=== PATIENT | female | born 1965 | race Caucasian/White ===

== ENCOUNTER 2020-02-08 10:12 | Inpatient (IN) ==
--- NOTE | 2020-02-08 10:54 | Emergency Department Note ---
ED Provider Note NAME: ROXANNE AYON AGE: 54 SEX: F ARRIVES VIA: Walk-In INFORMANT: Patient ED PROVIDER(S): Eileen Lee DO CHIEF COMPLAINT: Fever; nasal congestion; sinus pressure IMPRESSION: Bilateral multifocal pneumonia PLAN: Disposition: Admitted to [facility] group Condition: Guarded MEDICAL DECISION MAKING: This is a 54-year-old female patient who presents to the emergency department with fever, postnasal drip and sinus pressure over the past 4 days. The patient was concerned that she was developing another sinus infection as she has a longstanding history of sinus disease. However, the patient was also concerned because of exposure to her son and who both had traveled to [facility] and [place]. In her septic work-up, the patient was noted to have bilateral multifocal pneumonias that were concerning given her fever and possible exposure. I discussed the case with the [facility] and they have recommended COVID 19 testing. I also performed influenza testing whi ch was negative and bio fire testing which was positive for singh virus HKU1. I discussed the case with the [facility] service and they will evaluate for further management. The patient's vital signs were stable throughout her stay here in the emergency department Triage Nursing notes reviewed and agree them. Vital Signs: reviewed and were stable Differential diagnosis: Sepsis, sinusitis, sinus abscess, influenza, bronchitis, pneumonia, coronavirus, ER treatment provided: Tylenol, saline Diagnostics interpreted by me: ECG: Normal sinus rhythm at a rate of 100. No ischemia or ectopy noted. There is no ST segment elevation. Cardiac Monitoring: Normal sinus rhythm at a rate of 95. Laboratory studies: See below Imaging studies: As interpreted by radiology XR chest 1V portable HISTORY: 54 years-old Female SEPSIS acute sepsis COMPARISON: None TECHNIQUE: Portable AP view of the chest FINDINGS: Cardiac silhouette is normal. Mild bilateral hilar prominence may reflect adenopathy. No pneumothorax or large pleural effusion. Minimal left lung base opacities. Alveolar opacities of the right lung base and right midlung. No overt pulmonary edema. Degenerative changes of the shoulders and spine. IMPRESSION: Right greater than left bilateral opacities are suggestive of multifocal pneumonia. Follow-up imaging to document resolution is recommended. CT sinus wo con HISTORY: 54 years-old Female eval for frontal sinus fluid collection acute headache with concern for acute sinusitis COMPARISON: The sinus 04/09/2019 TECHNIQUE: Multiple axial CT images of the paranasal sinuses were obtained without the use of IV contrast. A dose lowering technique was used consistent with the principals of ALARA. FINDINGS: The imaged intracranial structures demonstrate no appreciable acute abnormality. Soft tissues and orbits are within normal limits. No acute calvarial fracture. Mastoid air cells and middle ear cavities are clear. No acute facial bone fracture identified. 3 mm sclerotic focus of the left sphenoid redemonstrated on image 138 series 3 suggestive of a probable bone island. Interval postoperative changes of partial ethmoidectomy. Mild to moderate mucosal thickening of the inferior maxillary sinuses. The right sphenoethmoidal recess is patent. Mild narrowing of the left sphenoethmoidal recess. Minimal mucosal thickening of the sphenoid sinuses with mild mucosal thickening of the inferior left maxillary sinus. The right maxillary sinus is clear. Patent sphenoethmoidal recesses and right maxillary ostiomeatal unit. There is mild mucosal thickening with resultant narrowing of the left maxillary ostiomeatal unit. Mild asymmetric thickening of the left inferior nasal turbinate. No large Farrah cell or bernie bullosa. Samantha alma is normal. IMPRESSION: 1. Interval postoperative changes of partial ethmoidectomy. 2. Paranasal sinus disease as above with mild to moderate mucosal thickening of the inferior frontal sinuses, left greater than right which results in mild narrowing of the left frontoethmoidal recess. 3. No appreciable air-fluid levels to suggest acute sinusitis. CT chest wo con CT DOSE: 220.01 mGy.cm CLINICAL HISTORY: 54 years-old Female with eval multifocal pneumonia. Multifocal pneumonia. Acute sepsis TECHNIQUE: Multiaxial CT images of the chest were performed without contrast. A dose lowering technique was utilized adhering to the principles of ALARA. COMPARISON: Chest radiograph since of same day FINDINGS: Unremarkable thyroid. Prominent paratracheal mildly enlarged right hilar and subcarinal lymph nodes measure up to 1.2 cm. Heart is normal in size. Trace pericardial effusion. Minimal coronary artery calcifications. No thoracic aortic aneurysm. Trace bilateral pleural effusions. No pneumothorax. Dense alveolar opa cities are present within the anterior segment right upper lobe and also a multi segmental distribution of the basal right lower lobe with air bronchograms. Linear consolidative with patchy groundglass opacities of the left lower lobe. Central airways appear patent. Respiratory motion artifact limits evaluation of the lung parenchyma. No acute process of the imaged upper abdomen. Indeterminate 7 mm hypodensity of the left hepatic lobe. There is a mildly hyperdense structure within the right paracentral distribution of the central canal at T5-T6, image 108 series 4 measuring 6 x 4 x 9 mm. This results in mild to moderate narrowing of the right lateral recess. Bones appear intact. IMPRESSION: 1. Dense alveolar opacities of the anterior segment right upper lobe and basal segments of the right lower lobe with air bronchograms is compatible with multifocal pneumonia. Follow-up imaging to document resolution is recommended. 2. Mild opacities of the basal left lower lobe favor atelectasis, pneumonitis however could appear similarly. 3. Trace pleural effusions. 4. Mild reactive mediastinal and hilar adenopathy. 5. 6 x 4 x 9 mm mildly hyperdense structure within the paracentral distribution of the central canal at T5-T6 results in mild to moderate narrowing of the right lateral recess. Partially calcified disc fragment versus meningioma are differential considerations. If there is further clinical concern, a follow-up nonemergent MRI of the thoracic spine may be considered. HPI: 54/F arrives for evaluation of fever, sinus pressure and postnasal drip. Patient states that she has a longstanding history of sinus infections and developed a fever with sinus pressure on . She thought that she was developing another sinus infection. She then noted she was having significant postnasal drip and gagging up the lot of thick sinus drainage. She then developed a high fever and diffuse myalgias. Her throat became sore from gagging up so much postnasal drip. Became more concerned today because she stated that she just felt more body aches and weaker. Her brought her here for evaluation. Of note, the patient's had traveled to [place] January 16 through and returned home on January 24. Also, the patient's son had traveled to [place] on January 22 and returned home on January 29. ROS: See above HPI for pertinent positives & negatives. A total of 10 systems reviewed and were otherwise negative. PAST MEDICAL HISTORY:GERD, sinusitis, asthma PAST SURGICAL HISTORY:Endoscopic sinus surgery with Dr. Sidhu in June FAMILY HISTORY:See Below SOCIAL HISTORY:See Below HOME MEDICATIONS:See Below ALLERGIES:See Below VITALS:Stable PHYSICAL EXAMINATION: HEENT: Head - normocephalic and atraumatic Pupils are equal, round, and reactive to light. Extraocular eye muscles are intact, and sclera are anicteric. Nose - moist nasal mucosa without discharge. Mouth - moist buccal mucosa. Oropharynx is nonerythematous and there is no tonsillar exudate or didi ma noted. Neck: Supple; no cervical lymphadenopathy Heart: Regular rate and rhythm. There is a normal S1 and S2 with no murmurs, clicks, or gallops appreciated. Lungs: Clear to auscultation bilaterally with no wheezes, rales, or rhonchi. Abdomen: Soft, completely nontender, nondistended, with good bowel sounds. There are no palpable pulsatile masses or hepatosplenomegaly. There is no guarding, rigidity, or rebound noted. Extremities: No evidence of cyanosis, clubbing, or edema. There are easily palpable peripheral pulses. Skin: warm and dry with good turgor and no rashes. ED COURSE: Triage nurse was concerned for the possibility of coronavirus. The patient was placed in airborne precautions. She was placed in negative pressure. I donned appropriate PPE. The patient was evaluated in room C9. A complete history and physical was performed. A septic protocol was performed. An IV lock was initiated and labs were drawn as above. An order was placed for continuous cardiac monitoring. The patient went for CT scan of her sinuses. A portable chest x-ray was performed and revealed bilateral multifocal pneumonias which was quite concernin g given her lack of significant respiratory complaint and in light of the current Covid 19 situation. I contacted the Department of Health Covid 19 hotline and discussed the case with Dr. Duran and she recommended bio Heyy testing and Covid 19 testing to be sent immediately to the Department of Health. This testing was complete. The patient went back for CT scan of the chest which confirmed the multifocal bilateral pneumonias. She remained hemodynamically stable. I kept her abreast of the situation. I kept the patient's abreast of the situation by telephone. I discussed the case with the [facility]ist and we talked about treating the patient for bacterial superinfection. I spoke with the patient about the possibility of other bacterial infection secondary to the possibility of aspiration. On bio fire panel, the patient was positive for a another coronavirus. Patient had some leukocytosis but her lactate was normal. Throughout her stay here in the emergency department, she remained hemodynamically stable and did not require oxygen support. 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 Beliefs That Will Affect Care: None Current Living Situation: Spouse Other Information That Helps Us Care for You: No Feels Safe at Home: Yes Safety Concerns: Feels Safe At This Time Smoking Status: Never smoker Second Hand Exposure: Yes ; Hx Alcohol Use: Yes Alcohol type: wine Hx Substance Use: No Results & Data Vital Signs Vital Signs - 24 hr 02/08/20 10:24 02/08/20 10:25 02/08/20 10:28 Temperature 37.6 C H Temperature Source Oral Pulse Rate 96 H 93 H Pulse Rate from SpO2 Sensor 93 H Respiratory Rate 20 22 Blood Pressure 132/84 120/83 Blood Pressure Mean 100 98 Pulse Oximetry 99 99 99 Oxygen Delivery Method Room Air Room Air Sepsis Recent Fever Within 48 Hours Yes Sepsis New/Unexplained Change in Mental Status No Sepsis Action Taken by Nursing No Action Required 02/08/20 10:30 02/08/20 11:00 02/08/20 11:30 Temperature Temperature Source Pulse Rate 92 H 98 H 95 H Pulse Rate from SpO2 Sensor 94 H 98 H 95 H Respiratory Rate 24 19 20 Blood Pressure 129/79 119/78 113/76 Blood Pressure Mean 90 100 92 Pulse Oximetry 99 96 98 Oxygen Delivery Method Sepsis Recent Fever Within 48 Hours Sepsis New/Unexplained Change in Mental Status Sepsis Action Taken by Nursing 02/08/20 12:13 02/08/20 12:37 02/08/20 13:00 Temperature Temperature Source Pulse Rate 92 H 94 H 91 H Pulse Rate from SpO2 Sensor 91 H 93 H 91 H Respiratory Rate 23 23 24 Blood Pressure 123/85 126/75 109/67 Blood Pressure Mean 100 83 75 Pulse Oximetry 98 96 95 Oxygen Delivery Method Sepsis Recent Fever Within 48 Hours Sepsis New/Unexplained Change in Mental Status Sepsis Action Taken by Nursing Laboratory Data Result diagrams: 02/08/20 11:31 02/08/20 11:31 Lab Results 02/08/20 02/08/20 02/08/20 Range/Units 10:32 11:31 11:31 WBC 17.64 H (4.8-10.8) K/uL RBC 4.14 L (4.2-5.4) M/uL Hgb 13.4 (12.0-16.0) g/dL Hct 38.8 (37-47) % MCV 93.7 (80-100) fL MCH 32.4 (25-34) pg MCHC 34.5 (32-36) g/dL RDW Std Deviation 43.9 (36.4-46.3) fL RDW Coeff of Camelia 12.7 (11.5-14.5) % Plt Count 222 (130-400) K/uL MPV 10.4 (7.4-10.4) fL Immature Gran % (Auto) 0.3 % Neut % (Auto) 83.7 % Lymph % (Auto) 6.6 % Chaffee % (Auto) 9.1 % Eos % (Auto) 0.2 % Baso % (Auto) 0.1 % Immature Gran # (Auto) 0.05 H (0.00-0.02) K/uL Neut # (Auto) 14.79 H (1.4-6.5) K/uL Lymph # (Auto) 1.16 L (1.2-3.4) K/uL [place]fee # (Auto) 1.60 H (0.11-0.59) K/uL Eos # (Auto) 0.03 (0-0.5) K/uL Baso # (Auto) 0.01 (0-0.2) K/uL PT 11.0 (9.0-12.0) Seconds INR 1.0 (0.9-1.1) APTT 31.9 H (21.0-31.0) Seconds PTT Ratio 1.1 Sodium (136-145) mmol/L Potassium (3.5-5.1) mmol/L Chloride (98-107) mmol/L Carbon Dioxide (21-32) mmol/L Anion Gap (3-11) BUN (7-18) mg/dl Creatinine (0.6-1.2) mg/dl Est Cr Clr Drug Dosing ml/min Est GFR ( Amer) Est GFR (Non-Af Amer) BUN/Creatinine Ratio (10-20) Glucose (70-99) mg/dl Lactate (0.4-2.0) mmol/L Calcium (8.5-10.1) mg/dl Total Bilirubin (0.2-1) mg/dl AST (15-37) U/L ALT (12-78) U/L Alkaline Phosphatase (45-117) U/L Total Protein (6.4-8.2) gm/dl Albumin (3.4-5.0) gm/dl Globulin (2.5-4.0) gm/dl Albumin/Globulin Ratio (0.9-2) Procalcitonin (0-0.5) ng/ml Adenovirus (PCR) (NotDetected) B. pertussis DNA (PCR) (NotDetected) B.parapertussis DNA PCR (NotDetected) C. pneumoniae DNA (PCR) (NotDetected) Coronavirus OC43 (PCR) (NotDetected) Coronavirus HKU1 (PCR) (NotDetected) Coronavirus 229E (PCR) (NotDetected) Coronavirus NL63 (PCR) (NotDetected) Human Metapneumovir PCR (NotDetected) Influenza Type A (PCR) Neg for Influ A (Neg) Influenza Type B (PCR) Neg for Influ B (Neg) M. pneumoniae (PCR) (NotDetected) Parainfluenza 1 (PCR) (NotDetected) Parainfluenza 2 (PCR) (NotDetected) Parainfluenza 3 (PCR) (NotDetected) Parainfluenza 4 (PCR) (NotDetected) RSV (PCR) (NotDetected) Entero/Rhino (PCR) (NotDetected) 02/08/20 02/08/20 02/08/20 Range/Units 11:31 11:31 12:10 WBC (4.8-10.8) K/uL RBC (4.2-5.4) M/uL Hgb (12.0-16.0) g/dL Hct (37-47) % MCV (80-100) fL MCH (25-34) pg MCHC (32-36) g/dL RDW Std Deviation (36.4-46.3) fL RDW Coeff of Camelia (11.5-14.5) % Plt Count (130-400) K/uL MPV (7.4-10.4) fL Immature Gran % (Auto) % Neut % (Auto) % Lymph % (Auto) % Chaffee % (Auto) % Eos % (Auto) % Baso % (Auto) % Immature Gran # (Auto) (0.00-0.02) K/uL Neut # (Auto) (1.4-6.5) K/uL Lymph # (Auto) (1.2-3.4) K/uL [place]affee # (Auto) (0.11-0.59) K/uL Eos # (Auto) (0-0.5) K/uL Baso # (Auto) (0-0.2) K/uL PT (9.0-12.0) Seconds INR (0.9-1.1) APTT (21.0-31.0) Seconds PTT Ratio Sodium 135 L (136-145) mmol/L Potassium 3.3 L (3.5-5.1) mmol/L Chloride 104 (98-107) mmol/L Carbon Dioxide 27 (21-32) mmol/L Anion Gap 4.0 (3-11) BUN 6 L (7-18) mg/dl Creatinine 0.80 (0.6-1.2) mg/dl Est Cr Clr Drug Dosing 70.2 ml/min Est GFR ( Amer) 97.6 Est GFR (Non-Af Amer) 84.2 BUN/Creatinine Ratio 6.9 L (10-20) Glucose 117 H (70-99) mg/dl Lactate 0.9 (0.4-2.0) mmol/L Calcium 8.6 (8.5-10.1) mg/dl Total Bilirubin 1.2 H (0.2-1) mg/dl AST 11 L (15-37) U/L ALT 17 (12-78) U/L Alkaline Phosphatase 93 (45-117) U/L Total Protein 6.7 (6.4-8.2) gm/dl Albumin 2.7 L (3.4-5.0) gm/dl Globulin 4.0 (2.5-4.0) gm/dl Albumin/Globulin Ratio 0.7 L (0.9-2) Procalcitonin 1.26 H (0-0.5) ng/ml Adenovirus (PCR) (NotDetected) B. pertussis DNA (PCR) (NotDetected) B.parapertussis DNA PCR (NotDetected) C. pneumoniae DNA (PCR) (NotDetected) Coronavirus OC43 (PCR) (NotDetected) Coronavirus HKU1 (PCR) (NotDetected) Coronavirus 229E (PCR) (NotDetected) Coronavirus NL63 (PCR) (NotDetected) Human Metapneumovir PCR (NotDetected) Influenza Type A (PCR) (Neg) Influenza Type B (PCR) (Neg) M. pneumoniae (PCR) (NotDetected) Parainfluenza 1 (PCR) (NotDetected) Parainfluenza 2 (PCR) (NotDetected) Parainfluenza 3 (PCR) (NotDetected) Parainfluenza 4 (PCR) (NotDetected) RSV (PCR) (NotDetected) Entero/Rhino (PCR) (NotDetected) 02/08/20 Range/Units 12:24 WBC (4.8-10.8) K/uL RBC (4.2-5.4) M/uL Hgb (12.0-16.0) g/dL Hct (37-47) % MCV (80-100) fL MCH (25-34) pg MCHC (32-36) g/dL RDW Std Deviation (36.4-46.3) fL RDW Coeff of Camelia (11.5-14.5) % Plt Count (130-400) K/uL MPV (7.4-10.4) fL Immature Gran % (Auto) % Neut % (Auto) % Lymph % (Auto) % [place]affee % (Auto) % Eos % (Auto) % Baso % (Auto) % Immature Gran # (Auto) (0.00-0.02) K/uL Neut # (Auto) (1.4-6.5) K/uL Lymph # (Auto) (1.2-3.4) K/uL [place]fee # (Auto) (0.11-0.59) K/uL Eos # (Auto) (0-0.5) K/uL Baso # (Auto) (0-0.2) K/uL PT (9.0-12.0) Seconds INR (0.9-1.1) APTT (21.0-31.0) Seconds PTT Ratio Sodium (136-145) mmol/L Potassium (3.5-5.1) mmol/L Chloride (98-107) mmol/L Carbon Dioxide (21-32) mmol/L Anion Gap (3-11) BUN (7-18) mg/dl Creatinine (0.6-1.2) mg/dl Est Cr Clr Drug Dosing ml/min Est GFR ( Amer) Est GFR (Non-Af Amer) BUN/Creatinine Ratio (10-20) Glucose (70-99) mg/dl Lactate (0.4-2.0) mmol/L Calcium (8.5-10.1) mg/dl Total Bilirubin (0.2-1) mg/dl AST (15-37) U/L ALT (12-78) U/L Alkaline Phosphatase (45-117) U/L Total Protein (6.4-8.2) gm/dl Albumin (3.4-5.0) gm/dl Globulin (2.5-4.0) gm/dl Albumin/Globulin Ratio (0.9-2) Procalcitonin (0-0.5) ng/ml Adenovirus (PCR) Not Detected (NotDetected) B. pertussis DNA (PCR) Not Detected (NotDetected) B.parapertussis DNA PCR Not Detected (NotDetected) C. pneumoniae DNA (PCR) Not Detected (NotDetected) Coronavirus OC43 (PCR) Not Detected (NotDetected) Coronavirus HKU1 (PCR) DETECTED A* (NotDetected) Coronavirus 229E (PCR) Not Detected (NotDetected) Coronavirus NL63 (PCR) Not Detected (NotDetected) Human Metapneumovir PCR Not Detected (NotDetected) Influenza Type A (PCR) Not Detected (Neg) Influenza Type B (PCR) Not Detected (Neg) M. pneumoniae (PCR) Not Detected (NotDetected) Parainfluenza 1 (PCR) Not Detected (NotDetected) Parainfluenza 2 (PCR) Not Detected (NotDetected) Parainfluenza 3 (PCR) Not Detected (NotDetected) Parainfluenza 4 (PCR) Not Detected (NotDetected) RSV (PCR) Not Detected (NotDetected) Entero/Rhino (PCR) Not Detected (NotDetected) Administered Medications Albuterol (Ventolin Hfa) 2 puffs INH Q4H PRN PRN Reason: chest tightness, wheezing, cough Stop: 03/09/20 17:14 Last Admin: 02/08/20 17:12 Dose: 2 puffs Documented by: [id number] Guaifenesin (Mucinex) 1,200 mg PO Q12 GISELA Stop: 03/09/20 15:29 Last Admin: 02/08/20 16:06 Dose: 1,200 mg Documented by: [id number] Sodium Chloride (Nss 1000ml) 1,000 mls @ 80 mls/hr IV .[id number] GISELA Stop: 02/09/20 15:49 Last Infusion: 02/08/20 17:13 Dose: 80 mls/hr Documented by: [id number] Infusion: 02/08/20 16:08 Dose: 0 mls/hr Documented by: [id number] Admin: 02/08/20 16:08 Dose: 80 mls/hr Documented by: [id number] Discontinued Medications Acetaminophen (Tylenol) 1,000 mg PO NOW STA Stop: 02/08/20 12:50 Last Admin: 02/08/20 13:40 Dose: 1,000 mg Documented by: [id number] Fluticasone/Vilanterol (Breo Ellipta 200/25 Mcg Inh) 1 puffs INH ONE ONE Stop: 02/08/20 17:08 Last Admin: 02/08/20 17:12 Dose: 1 puffs Documented by: [id number] Sodium Chloride (Nss) 500 mls @ 999 mls/hr IV .Q31M ONE Stop: 02/08/20 11:56 Last Infusion: 02/08/20 12:53 Dose: 0 mls/hr Documented by: [id number] Admin: 02/08/20 12:09 Dose: 999 mls/hr Documented by: [id number] Ceftriaxone Sodium (Rocephin) 2,000 mg in 70 mls @ 140 mls/hr IV NOW STA Stop: 02/08/20 13:37 Last Infusion: 02/08/20 14:51 Dose: 0 mls/hr Documented by: [id number] Admin: 02/08/20 13:40 Dose: 140 mls/hr Documented by: [id number] Sodium Chloride (Nss 1000ml) 2,000 mls @ 999 mls/hr IV .Q2H1M ONE Stop: 02/08/20 15:14 Last Infusion: 02/08/20 16:09 Dose: 0 mls/hr Documented by: [id number] Admin: 02/08/20 13:50 Dose: 999 mls/hr Documented by: [id number] Azithromycin 500 mg/ Dextrose 255 mls @ 125 mls/hr IV ONE ONE Stop: 02/08/20 15:17 Last Infusion: 02/08/20 17:13 Dose: 0 mls/hr Documented by: [id number] Admin: 02/08/20 14:51 Dose: 125 mls/hr Documented by: [id number] Ketorolac Tromethamine (Toradol) 30 mg IV NOW ONE Stop: 02/08/20 11:27 Last Admin: 02/08/20 12:08 Dose: 30 mg Documented by: [id number] Potassium Chloride (Klor-Con M20) 40 meq PO NOW STA Stop: 02/08/20 14:51 Last Admin: 02/08/20 16:06 Dose: 40 meq Documented by: [id number] Discharge Plan Visit Data *Final* Discharge Date/Time: 02/08/20 14:02 Chief Complaint: Fever Stated Complaint: FEVER,COUGH,BODY ACHES,HEADACHE ED Provider: Eileen Lee Discharge Problem: Multifocal pneumonia Patient Disposition: Admitted As Inpatient Discharge Instructions Interventions: ED Discharge Assessment Last Done: 02/08/20 14:02
[2020-02-08 11:16] LABS: Influenza A virus by PCR Neg for Influ A (Neg); Influenza B virus by PCR Neg for Influ B (Neg)
[2020-02-08] MEDS ORDERED: KETOROLAC 30 MG/ML VIAL IV ONE (11:26)
[2020-02-08] MEDS ORDERED: SODIUM CHLORIDE 0.9% 500 ML IV ONE (11:26)
[2020-02-08 11:45] LABS: Basophils # (auto) 0.01 K/uL (0-0.2); Basophils % (auto) 0.1 %; Eosinophils # (auto) 0.03 K/uL (0-0.5); Eosinophils % (auto) 0.2 %; Hematocrit (blood only) 38.8 % (37-47); Hemoglobin 13.4 g/dL (12.0-16.0); Immature Granulocytes # (auto) 0.05 K/uL (0.00-0.02); Immature Granulocytes % (auto) 0.3 %; Lymphocytes # (auto) 1.16 K/uL (1.2-3.4); Lymphocytes % (auto) 6.6 %; Mean Corpuscular Hemoglobin 32.4 pg (25-34); Mean Corpuscular Hgb Conc 34.5 g/dL (32-36); Mean Corpuscular Volume 93.7 fL (80-100); Mean Platelet Volume 10.4 fL (7.4-10.4); Monocytes % (auto) 9.1 %; Neutrophils # (auto) 14.79 K/uL (1.4-6.5); Neutrophils % (auto) 83.7 %; Platelet Count 222 K/uL (130-400); RDW Coefficient of Variation 12.7 % (11.5-14.5); RDW Standard Deviation 43.9 fL (36.4-46.3); Red Blood Count 4.14 M/uL (4.2-5.4); White Blood Count 17.64 K/uL (4.8-10.8)
--- NOTE | 2020-02-08 11:51 | XRay Report ---
XR chest 1V portable HISTORY: 54 years-old Female SEPSIS acute sepsis COMPARISON: None TECHNIQUE: Portable AP view of the chest FINDINGS: Cardiac silhouette is normal. Mild bilateral hilar prominence may reflect adenopathy. No pneumothorax or large pleural effusion. Minimal left lung base opacities. Alveolar opacities of the right lung ba se and right midlung. No overt pulmonary edema. Degenerative changes of the shoulders and spine. IMPRESSION: Right greater than left bilateral opacities are suggestive of multifocal pneumonia. Follo w-up imaging to document resolution is recommended. ACT 112: Negative or not required by law. The above report was generated using voice recognition software. It may contain grammatical, syntax o r spelling errors. Electronically signed by: Nick Carlson M.D. 02/08/2020 11:50 AM
[2020-02-08 11:58] LABS: Partial Thromboplastin Ratio 1.1; Partial Thromboplastin Time 31.9 Seconds (21.0-31.0)
[2020-02-08 12:02] LABS: Albumin Level 2.7 gm/dl (3.4-5.0); BUN Creatinine Ratio 6.9 (10-20); Calcium 8.6 mg/dl (8.5-10.1); Creatinine Clr Calc Pharmacy 70.2 ml/min; Est GFR (African American) 97.6; Est GFR (Non-African American) 84.2; Potassium 3.3 mmol/L (3.5-5.1)
[2020-02-08 12:05] LABS: Albumin Globulin Ratio 0.7 (0.9-2); Bilirubin,Total 1.2 mg/dl (0.2-1); Total Protein 6.7 gm/dl (6.4-8.2)
--- NOTE | 2020-02-08 12:09 | CT Scan Report ---
CT sinus wo con HISTORY: 54 years-old Female eval for frontal sinus fluid collection acute headache with concern for acute sinusitis COMPARISON: The sinus 04/09/2019 TECHNIQUE: Multiple axial CT images of the paranasal sinuses were obtained without the use of IV cont rast. A dose lowering technique was used consistent with the principals of NASH. FINDINGS: The imaged intracranial structures demonstrate no appreciable acute abnormality. Soft tissues and orb its are within normal limits. No acute calvarial fracture. Mastoid air cells and middle ear cavities are clear. No acute facial bone fracture identified. 3 mm sclerotic focus of the left sphenoid redemo nstrated on image 138 series 3 suggestive of a probable bone island. Interval postoperative changes o f partial ethmoidectomy. Mild to moderate mucosal thickening of the inferior maxillary sinuses. The r ight sphenoethmoidal recess is patent. Mild narrowing of the left sphenoethmoidal recess. Minimal muc osal thickening of the sphenoid sinuses with mild mucosal thickening of the inferior left maxillary s inus. The right maxillary sinus is clear. Patent sphenoethmoidal recesses and right maxillary ostiome atal unit. There is mild mucosal thickening with resultant narrowing of the left maxillary ostiomeata l unit. Mild asymmetric thickening of the left inferior nasal turbinate. No large Farrah cell or conc esquivel bullosa. Samantha alma is normal. IMPRESSION: 1. Interval postoperative changes of partial ethmoidectomy. 2. Paranasal sinus disease as above with mild to moderate mucosal thickening of the inferior frontal sinuses, left greater than right which results in mild narrowing of the left frontoethmoidal recess. 3. No appreciable air-fluid levels to suggest acute sinusitis. ACT 112: Negative or not required by law. The above report was generated using voice recognition software. It may contain grammatical, syntax o r spelling errors. Electronically signed by: Nick Carlson M.D. 02/08/2020 12:08 PM
[2020-02-08] MEDS ORDERED: ACETAMINOPHEN 500 MG TAB PO STA (12:49)
--- NOTE | 2020-02-08 12:58 | CT Scan Report ---
CT chest wo con CT DOSE: 220.01 mGy.cm CLINICAL HISTORY: 54 years-old Female with eval multifocal pneumonia. Multifocal pneumonia. Acute se psis TECHNIQUE: Multiaxial CT images of the chest were performed without contrast. A dose lowering techni que was utilized adhering to the principles of ALARA. COMPARISON: Chest radiograph since of same day FINDINGS: Unremarkable thyroid. Prominent paratracheal mildly enlarged right hilar and subcarinal lymph nodes m easure up to 1.2 cm. Heart is normal in size. Trace pericardial effusion. Minimal coronary artery tanja cifications. No thoracic aortic aneurysm. Trace bilateral pleural effusions. No pneumothorax. Dense a lveolar opacities are present within the anterior segment right upper lobe and also a multi segmental distribution of the basal right lower lobe with air bronchograms. Linear consolidative with patchy g roundglass opacities of the left lower lobe. Central airways appear patent. Respiratory motion artifa ct limits evaluation of the lung parenchyma. No acute process of the imaged upper abdomen. Indeterminate 7 mm hypodensity of the left hepatic lobe . There is a mildly hyperdense structure within the right paracentral distribution of the central can al at T5-T6, image 108 series 4 measuring 6 x 4 x 9 mm. This results in mild to moderate narrowing of the right lateral recess. Bones appear intact. IMPRESSION: 1. Dense alveolar opacities of the anterior segment right upper lobe and basal segments of the right lower lobe with air bronchograms is compatible with multifocal pneumonia. Follow-up imaging to docume nt resolution is recommended. 2. Mild opacities of the basal left lower lobe favor atelectasis, pneumonitis however could appear si milarly. 3. Trace pleural effusions. 4. Mild reactive mediastinal and hilar adenopathy. 5. 6 x 4 x 9 mm mildly hyperdense structure within the paracentral distribution of the central canal at T5-T6 results in mild to moderate narrowing of the right lateral recess. Partially calcified disc fragment versus meningioma are differential considerations. If there is further clinical concern, a f ollow-up nonemergent MRI of the thoracic spine may be considered. ACT 112: Negative or not required by law. Electronically signed by: Nick Carlson M.D. 02/08/2020 12:57 PM
[2020-02-08] MEDS ORDERED: cefTRIAXone SODIUM 2,000 MG/70 ML BAG IV STA (13:08)
[2020-02-08] MEDS ORDERED: SODIUM CHLORIDE 0.9% 1000ML 2,000 ML IV ONE (13:14)
[2020-02-08] MEDS ORDERED: AZITHROMYCIN 500 MG in DEXTROSE 5% 250 ML IV ONE (13:15)
[2020-02-08 13:31] LABS: Adenovirus PCR Not Detected (NotDetected); Bordetella parapertussis PCR Not Detected (NotDetected); Bordetella pertussis PCR Not Detected (NotDetected); Chlamydia pneumoniae PCR Not Detected (NotDetected); Coronavirus 229E PCR Not Detected (NotDetected); Coronavirus NL63 PCR Not Detected (NotDetected); Coronavirus OC43PCR Not Detected (NotDetected); Human Metapneumovirus PCR Not Detected (NotDetected); Influenza A PCR Not Detected (NotDetected); Influenza B PCR Not Detected (NotDetected); Mycoplasma pneumoniae PCR Not Detected (NotDetected); Parainfluenza Virus 1 PCR Not Detected (NotDetected); Parainfluenza Virus 2 PCR Not Detected (NotDetected); Parainfluenza Virus 3 PCR Not Detected (NotDetected); Parainfluenza Virus 4 PCR Not Detected (NotDetected); Respiratory Syncytial VirusPCR Not Detected (NotDetected); Rhinovirus/Enterovirus PCR Not Detected (NotDetected)
[2020-02-08 13:33] LABS: Coronavirus HKU1 PCR DETECTED (NotDetected)
--- NOTE | 2020-02-08 13:55 | History & Physical Report ---
Date of Service February 08, 2020 Assessment & Plan (1) Multifocal pneumonia: - Presented with nasal congestion, post nasal drip, fever/chills, myalgias. Has been mildly tachycardic, low grade fever (37.6 C) since presenting to the ER. - CT chest showed opacities of RUL and RLL; also has opacities of basal left lower lobe, possibly atelectasis. - CT sinuses was negative for acute sinusitis. - Influenza by PCR negative; Biofire +Coronavirus HKU1. COVID-19 test is pending. - Blood cultures pending; U/a pending collection. - Procal pending; Ceftriaxone/Azithromycin for coverage of CAP due to appearance of bacterial PNA on CT scan. - Duonebs q6hr prn SOB/wheezing. - IV fluids at 80 cc/hr; regular diet as tolerated. (2) Suspected [facility] coronavirus infection: - Possible exposure to COVID-19 -- her son and traveled over the last month to [place] and [place]. - COVID-19 test was sent to the [facility], should be resulted by Sunday. - Airborne precautions. (3) Coronavirus infection: HKU1 positive, COVID-19 pending - supportive care, airborne precautions (4) Leukocytosis: - WBC 17.64 in setting of PNA with left shift. - Trend CBC daily. (5) Elevated bilirubin: - T. bili 1.2 in setting of acute illness. - Trend LFTs in the AM. (6) Chronic sinusitis: - H/o partial ethmoidectomy in 2019. - Has not had issues with sinus infections since her surgery, previously had 7-9 per year; treatment for PNA as noted above. - CT of sinuses negative with except of mild to moderate mucosal thickening. (7) Moderate persistent asthma: Advair switched for Breo Ellipta as per hospital formulary (8) Hypokalemia: - K level 3.3 - ordered KCl 40 mEq PO. - Monitor levels daily. (9) Allergic rhinitis: Switch loratadine for cetirizine 10mg PO daily (10) DVT prophylaxis: - SCDs; Lovenox daily. Dispo: Med/surg with tele with airborne precautions. History of Present Illness Chief Complaint: respiratory symptoms Primary Care Provider: Micky Bauer Mrs. Pena is a 54 year old female with past medical history of sinus infections s/p recent partial ethmoidectomy in 2019 who presented with respiratory symptoms. Patient developed frequent sinus infections, average of 7- 9 per year, prior to sinus surgery. She has not had any issues following surgery until she developed sinus pressure/pain on . Pt. c/o thick green-yellow mucous congestion with post nasal drip leading to coughing episodes. She does not have chest congestion, shortness of breath, chest pain. Pt. developed generalized myalgias and severe headache this morning. She has had exposure to family members who recently traveled -- her son traveled to [facility] for spring break (01/22-01/29) via [place] airport and her traveled to [place] for work (01/16-01/24) via [place]. Her son and are both completely asymptomatic. ER course: Influenza by PCR was negative. Biofire is pending. CT sinuses showed paranasal sinus disease with mild to moderate mucosal thickening. CT chest showed opacities of RUL and RLL concerning for multifocal pneumonia. Pt. will be tested for COVID-19 following discussion with GIANNA. Allergies Allergy/AdvReac Type Severity Reaction Status Date / Time mold Allergy Severe inflamation Unverified 02/08/20 11:01 of lungs and sinus fexofenadine [From Iveth] Allergy Anxiety Verified 02/08/20 11:01 sulfamethoxazole Allergy Headache Verified 02/08/20 11:01 [From Bactrim] trimethoprim [From Bactrim] Allergy Headache Verified 02/08/20 11:01 Home Medications Home Medications Medication Instructions Recorded Confirmed Type albuterol sulfate 1 puff INHALATION QAM 06/20/19 02/08/20 History fluticasone propion-salmeterol 1 inh INHALATION BID 06/20/19 02/08/20 History [Advair Diskus] ibuprofen [Advil] 200 mg PO Q6H PRN 06/20/19 02/08/20 History loratadine [Claritin] 10 mg PO QPM 06/20/19 02/08/20 History methenamine hippurate 1 g PO BID 06/20/19 02/08/20 History mometasone 2 spray INTRANASAL BID 06/20/19 02/08/20 History montelukast [Singulair] 10 mg PO PM 06/20/19 02/08/20 History Past Med/Surg History Medical History Asthma GERD (gastroesophageal reflux disease) Sinus infection CURRENT 06/20/19 Surgical History History of surgical procedure on eye proper using laser History of tooth extraction Family History Brother Diabetes Social History Preferred Language: [place] Communication Ability: Effective University Internship Required: No Beliefs That Will Affect Care: None Current Living Situation: Spouse Other Information That Helps Us Care for You: No Feels Safe at Home: Yes Safety Concerns: Feels Safe At This Time Smoking Status: Never smoker Second Hand Exposure: Yes ; Hx Alcohol Use: Yes Alcohol type: wine Hx Substance Use: No Review of Systems Review of Systems: All systems reviewed & are unremarkable except as noted in HPI & below Constitutional: + fever, + chills, + body aches, + fatigue, + weakness and + anorexia Ear, Nose, Mouth, Throat: + nasal congestion, + nasal discharge, + post nasal drip, + facial pain and + sinus pain/pressure; no sore throat Respiratory: + cough; no chest congestion, no dyspnea, no dyspnea on exertion and no wheezing Cardiovascular: no chest pain, no palpitations and no edema Gastrointestinal: no abdominal pain, no nausea, no vomiting and no constipation Genitourinary: no difficulty urinating Musculoskeletal: no back pain and no joint pain Integumentary: no non-healing lesions Physical Exam Physical Exam: General: Resting comfortably HEENT: NC/AT; PERRLA with EOMI; [place] conjunctiva, MMM. No erythema of posterior pharynx Neck: Supple and nontender Cardiac: RRR Lungs: Room air; CTA throughout Abdomen: Bowel normoactive X 4; Nontender to palpation Extremities: Warm. No edema present Neuro: No focal weakness Skin: No rash Results & Data Vital Signs (Past 12 Hours) Vital Signs Temp Pulse Resp BP Pulse Ox 02/08/20 13:00 91 H 24 109/67 95 02/08/20 12:37 94 H 23 126/75 96 03/22/20 12:13 92 H 23 123/85 98 02/08/20 11:30 95 H 20 113/76 98 02/08/20 11:00 98 H 19 119/78 96 02/08/20 10:30 92 H 24 129/79 99 02/08/20 10:28 99 02/08/20 10:25 93 H 22 120/83 99 02/08/20 10:24 37.6 C H 96 H 20 132/84 99 Laboratory Results 02/08/20 02/08/20 02/08/20 Range/Units 12:24 12:24 12:10 WBC (4.8-10.8) K/uL RBC (4.2-5.4) M/uL Hgb (12.0-16.0) g/dL Hct (37-47) % MCV (80-100) fL MCH (25-34) pg MCHC (32-36) g/dL RDW Std Deviation (36.4-46.3) fL RDW Coeff of Camelia (11.5-14.5) % Plt Count (130-400) K/uL MPV (7.4-10.4) fL Immature Gran % (Auto) % Neut % (Auto) % Lymph % (Auto) % [place] % (Auto) % Eos % (Auto) % Baso % (Auto) % Immature Gran # (Auto) (0.00-0.02) K/uL Neut # (Auto) (1.4-6.5) K/uL Lymph # (Auto) (1.2-3.4) K/uL [place] # (Auto) (0.11-0.59) K/uL Eos # (Auto) (0-0.5) K/uL Baso # (Auto) (0-0.2) K/uL PT (9.0-12.0) Seconds INR (0.9-1.1) APTT (21.0-31.0) Seconds PTT Ratio Sodium (136-145) mmol/L Potassium (3.5-5.1) mmol/L Chloride (98-107) mmol/L Carbon Dioxide (21-32) mmol/L Anion Gap (3-11) BUN (7-18) mg/dl Creatinine (0.6-1.2) mg/dl Est Cr Clr Drug Dosing ml/min Est GFR ( Amer) Est GFR (Non-Af Amer) BUN/Creatinine Ratio (10-20) Glucose (70-99) mg/dl Lactate (0.4-2.0) mmol/L Calcium (8.5-10.1) mg/dl Total Bilirubin (0.2-1) mg/dl AST (15-37) U/L ALT (12-78) U/L Alkaline Phosphatase (45-117) U/L Total Protein (6.4-8.2) gm/dl Albumin (3.4-5.0) gm/dl Globulin (2.5-4.0) gm/dl Albumin/Globulin Ratio (0.9-2) Procalcitonin Pending Adenovirus (PCR) Not Detected (NotDetected) B. pertussis DNA (PCR) Not Detected (NotDetected) B.parapertussis DNA PCR Not Detected (NotDetected) C. pneumoniae DNA (PCR) Not Detected (NotDetected) Coronavirus OC43 (PCR) Not Detected (NotDetected) Coronavirus HKU1 (PCR) DETECTED A* (NotDetected) Coronavirus 229E (PCR) Not Detected (NotDetected) Nasopharyn COVID-19 PCR Pending Sputum COVID-19 PCR Pending Coronavirus NL63 (PCR) Not Detected (NotDetected) Human Metapneumovir PCR Not Detected (NotDetected) Influenza Type A (PCR) Not Detected (Neg) Influenza Type B (PCR) Not Detected (Neg) M. pneumoniae (PCR) Not Detected (NotDetected) Parainfluenza 1 (PCR) Not Detected (NotDetected) Parainfluenza 2 (PCR) Not Detected (NotDetected) Parainfluenza 3 (PCR) Not Detected (NotDetected) Parainfluenza 4 (PCR) Not Detected (NotDetected) RSV (PCR) Not Detected (NotDetected) Entero/Rhino (PCR) Not Detected (NotDetected) 02/08/20 02/08/20 02/08/20 Range/Units 11:31 11:31 11:31 WBC (4.8-10.8) K/uL RBC (4.2-5.4) M/uL Hgb (12.0-16.0) g/dL Hct (37-47) % MCV (80-100) fL MCH (25-34) pg MCHC (32-36) g/dL RDW Std Deviation (36.4-46.3) fL RDW Coeff of Camelia (11.5-14.5) % Plt Count (130-400) K/uL MPV (7.4-10.4) fL Immature Gran % (Auto) % Neut % (Auto) % Lymph % (Auto) % [place] % (Auto) % Eos % (Auto) % Baso % (Auto) % Immature Gran # (Auto) (0.00-0.02) K/uL Neut # (Auto) (1.4-6.5) K/uL Lymph # (Auto) (1.2-3.4) K/uL [place] # (Auto) (0.11-0.59) K/uL Eos # (Auto) (0-0.5) K/uL Baso # (Auto) (0-0.2) K/uL PT 11.0 (9.0-12.0) Seconds INR 1.0 (0.9-1.1) APTT 31.9 H (21.0-31.0) Seconds PTT Ratio 1.1 Sodium 135 L (136-145) mmol/L Potassium 3.3 L (3.5-5.1) mmol/L Chloride 104 (98-107) mmol/L Carbon Dioxide 27 (21-32) mmol/L Anion Gap 4.0 (3-11) BUN 6 L (7-18) mg/dl Creatinine 0.80 (0.6-1.2) mg/dl Est Cr Clr Drug Dosing 70.2 ml/min Est GFR ( Amer) 97.6 Est GFR (Non-Af Amer) 84.2 BUN/Creatinine Ratio 6.9 L (10-20) Glucose 117 H (70-99) mg/dl Lactate 0.9 (0.4-2.0) mmol/L Calcium 8.6 (8.5-10.1) mg/dl Total Bilirubin 1.2 H (0.2-1) mg/dl AST 11 L (15-37) U/L ALT 17 (12-78) U/L Alkaline Phosphatase 93 (45-117) U/L Total Protein 6.7 (6.4-8.2) gm/dl Albumin 2.7 L (3.4-5.0) gm/dl Globulin 4.0 (2.5-4.0) gm/dl Albumin/Globulin Ratio 0.7 L (0.9-2) Procalcitonin Adenovirus (PCR) (NotDetected) B. pertussis DNA (PCR) (NotDetected) B.parapertussis DNA PCR (NotDetected) C. pneumoniae DNA (PCR) (NotDetected) Coronavirus OC43 (PCR) (NotDetected) Coronavirus HKU1 (PCR) (NotDetected) Coronavirus 229E (PCR) (NotDetected) Nasopharyn COVID-19 PCR Sputum COVID-19 PCR Coronavirus NL63 (PCR) (NotDetected) Human Metapneumovir PCR (NotDetected) Influenza Type A (PCR) (Neg) Influenza Type B (PCR) (Neg) M. pneumoniae (PCR) (NotDetected) Parainfluenza 1 (PCR) (NotDetected) Parainfluenza 2 (PCR) (NotDetected) Parainfluenza 3 (PCR) (NotDetected) Parainfluenza 4 (PCR) (NotDetected) RSV (PCR) (NotDetected) Entero/Rhino (PCR) (NotDetected) 02/08/20 02/08/20 Range/Units 11:31 10:32 WBC 17.64 H (4.8-10.8) K/uL RBC 4.14 L (4.2-5.4) M/uL Hgb 13.4 (12.0-16.0) g/dL Hct 38.8 (37-47) % MCV 93.7 (80-100) fL MCH 32.4 (25-34) pg MCHC 34.5 (32-36) g/dL RDW Std Deviation 43.9 (36.4-46.3) fL RDW Coeff of Camelia 12.7 (11.5-14.5) % Plt Count 222 (130-400) K/uL MPV 10.4 (7.4-10.4) fL Immature Gran % (Auto) 0.3 % Neut % (Auto) 83.7 % Lymph % (Auto) 6.6 % [place] % (Auto) 9.1 % Eos % (Auto) 0.2 % Baso % (Auto) 0.1 % Immature Gran # (Auto) 0.05 H (0.00-0.02) K/uL Neut # (Auto) 14.79 H (1.4-6.5) K/uL Lymph # (Auto) 1.16 L (1.2-3.4) K/uL [place] # (Auto) 1.60 H (0.11-0.59) K/uL Eos # (Auto) 0.03 (0-0.5) K/uL Baso # (Auto) 0.01 (0-0.2) K/uL PT (9.0-12.0) Seconds INR (0.9-1.1) APTT (21.0-31.0) Seconds PTT Ratio Sodium (136-145) mmol/L Potassium (3.5-5.1) mmol/L Chloride (98-107) mmol/L Carbon Dioxide (21-32) mmol/L Anion Gap (3-11) BUN (7-18) mg/dl Creatinine (0.6-1.2) mg/dl Est Cr Clr Drug Dosing ml/min Est GFR ( Amer) Est GFR (Non-Af Amer) BUN/Creatinine Ratio (10-20) Glucose (70-99) mg/dl Lactate (0.4-2.0) mmol/L Calcium (8.5-10.1) mg/dl Total Bilirubin (0.2-1) mg/dl AST (15-37) U/L ALT (12-78) U/L Alkaline Phosphatase (45-117) U/L Total Protein (6.4-8.2) gm/dl Albumin (3.4-5.0) gm/dl Globulin (2.5-4.0) gm/dl Albumin/Globulin Ratio (0.9-2) Procalcitonin Adenovirus (PCR) (NotDetected) B. pertussis DNA (PCR) (NotDetected) B.parapertussis DNA PCR (NotDetected) C. pneumoniae DNA (PCR) (NotDetected) Coronavirus OC43 (PCR) (NotDetected) Coronavirus HKU1 (PCR) (NotDetected) Coronavirus 229E (PCR) (NotDetected) Nasopharyn COVID-19 PCR Sputum COVID-19 PCR Coronavirus NL63 (PCR) (NotDetected) Human Metapneumovir PCR (NotDetected) Influenza Type A (PCR) Neg for Influ A (Neg) Influenza Type B (PCR) Neg for Influ B (Neg) M. pneumoniae (PCR) (NotDetected) Parainfluenza 1 (PCR) (NotDetected) Parainfluenza 2 (PCR) (NotDetected) Parainfluenza 3 (PCR) (NotDetected) Parainfluenza 4 (PCR) (NotDetected) RSV (PCR) (NotDetected) Entero/Rhino (PCR) (NotDetected) Code Status & VTE Plan VTE Prophylaxis Plan VTE Prophylaxis will be ordered: Yes Supervising Physician Co-Signing Physician Notes I personally saw and examined the patient. I verified all quintero points and agree with HATTIE Khan with the following exceptions and/or additions: 54 yo 4 day history of increased PND, acute worsening today with fever. High risk exposure to coronavirus. Moderate persistent asthma but no need for prednisone use in the last year for this. O/E Well appearing, left rhonchi throughout back, right reduced air entry mid zone to base, Good air entry anteriorly b/l, no wheezing, HS1+2/RRR, no calf tenderness, no pedal edema. A/P Multifocal pneumonia - patient appears much better than her CT findings, Rx ceftriaxone + azithromycin, no O2 requirement at present, flutter valve, incentive spirometry, mucinex. No acute sinusitis symptoms or CT findings. Moderate persistent asthma - no current exacerbation, albuterol nebs Q6H to help with incentive spirometry. Advair switched for Breo Ellipta (use after nebulizer). Coronavirus HKU1 - supportive care, COVID-19 pending (supposedly getting results from GIANNA within 24 hours) Allergic rhinitis - with associated PND, loratadine switched for cetirizine for increased effectiveness, Use ocean nasal spray followed by fluticasone BID. Cancelled UA - no indication for this PG Care Time/CCT Total # of Minutes Spent Total Time Spent with Patient: Total time spent is greater than 50% in coordination of care (as documented) at patient's floor/unit and/or counseling patient: Coding Level of Care Code 20248 Initial Inpt Care Lvl 3 Diagnoses Multifocal pneumonia J18.[address] [facility] coronavirus infection R68.89 Coronavirus infection B34.2 Leukocytosis D72.829 Elevated bilirubin R17 Chronic sinusitis J32.9 Moderate persistent asthma J45.40 Asthma complication type: uncomplicated Hypokalemia E87.6 Allergic rhinitis J30.9 Allergic rhinitis trigger: unspecified Allergic rhinitis seasonality: unspecified DVT prophylaxis Z29.9 (1) Moderate persistent asthma Asthma complication type: uncomplicated Qualified Code(s): J45.40 - Moderate persistent asthma, uncomplicated (2) Allergic rhinitis Allergic rhinitis trigger: unspecified Allergic rhinitis seasonality: unspecified Qualified Code(s): J30.9 - Allergic rhinitis, unspecified
[2020-02-08] MEDS ORDERED: ONDANSETRON INJ 2 MG/ML 2 ML VIAL IV PRN (14:50)
[2020-02-08] MEDS ORDERED: POTASSIUM CHLORIDE 20 MEQ TABCR PO STA (14:50)
[2020-02-08] MEDS ORDERED: ALBUT/IPRATROP 3MG/0.5MG NEB 3 ML VIAL NEB PRN ×2 (14:50→16:12)
[2020-02-08] MEDS ORDERED: ALBUT/IPRATROP 3MG/0.5MG NEB 3 ML VIAL NEB SCH (15:00)
[2020-02-08] MEDS ORDERED: ALBUTEROL 0.083% NEBU SOLN 3 ML VIAL NEB PRN (15:52)
[2020-02-08] MEDS: guaiFENesin 600 MG TABCR PO SCH ×2 (16:06→20:07)
[2020-02-08] MEDS: SODIUM CHLORIDE 0.9% 1000ML 1,000 ML IV SCH (16:08)
[2020-02-08] MEDS ORDERED: FLUTICASONE/VILANTEROL 200/25MCG 14 PUFFS/INHALER INH ONE (17:07)
[2020-02-08] MEDS ORDERED: ALBUTEROL HFA 8 GM INHALER INH PRN (17:10)
--- NOTE | 2020-02-08 18:33 | Electrocardiogram Report ---
Test Reason : Blood Pressure : / mmHG Vent. Rate : 100 BPM Atrial Rate : 100 BPM P-R Int : 158 ms QRS Dur : 082 ms QT Int : 344 ms P-R-T Axes : 072 050 054 degrees QTc Int : 443 ms Normal sinus rhythm with occasional PACs Normal ECG When compared with ECG of 27-JUN-2019 12:05, Vent. rate has increased BY 38 BPM Confirmed by Skip Jamil ([id number]) on 02/08/2020 6:32:55 PM Referred By: REFERRED SELF Confirmed By:Jason Jamil
[2020-02-08] MEDS ORDERED: ALBUTEROL 0.5% NEB SOLN 2.5 MG/0.5 ML VIAL NEB SCH (19:00)
[2020-02-08] MEDS: CETIRIZINE HCL 10 MG TABLET PO SCH (20:07)
[2020-02-08] MEDS: MONTELUKAST SODIUM 10 MG TABLET PO SCH (20:07)
[2020-02-08] MEDS: ENOXAPARIN INJ 40 MG/0.4 ML SYR SQ SCH (20:08)
[2020-02-08] MEDS: SODIUM CHLORIDE 0.65% NA SOLN 45 ML (OCEAN) SCH (20:08)
[2020-02-08] MEDS: FLUTICASONE PROPIONATE NA SPR 16 GM BTL SCH (20:08)
[2020-02-08] MEDS: ALBUTEROL 0.083% NEBU SOLN 3 ML VIAL INH SCH (20:10)
[2020-02-08] MEDS: ACETAMINOPHEN 325 MG TAB PO PRN (21:35)
[2020-02-08] MEDS ORDERED: Nursing to Pharmacy Communication ONE (22:12)
[2020-02-09] MEDS: ALBUTEROL 0.083% NEBU SOLN 3 ML VIAL INH SCH ×4 (01:21→19:12)
[2020-02-09] MEDS: ACETAMINOPHEN 325 MG TAB PO PRN ×4 (04:47→20:08)
[2020-02-09 06:06] LABS: Hematocrit (blood only) 34.8 % (37-47); Hemoglobin 11.6 g/dL (12.0-16.0); Mean Corpuscular Hemoglobin 31.4 pg (25-34); Mean Corpuscular Hgb Conc 33.3 g/dL (32-36); Mean Corpuscular Volume 94.3 fL (80-100); Mean Platelet Volume 10.4 fL (7.4-10.4); Platelet Count 182 K/uL (130-400); RDW Coefficient of Variation 13.1 % (11.5-14.5); RDW Standard Deviation 45.7 fL (36.4-46.3); Red Blood Count 3.69 M/uL (4.2-5.4); White Blood Count 14.53 K/uL (4.8-10.8)
[2020-02-09 06:41] LABS: Albumin Level 2.2 gm/dl (3.4-5.0); BUN Creatinine Ratio 9.5 (10-20); Calcium 7.8 mg/dl (8.5-10.1); Creatinine Clr Calc Pharmacy 82.6 ml/min; Est GFR (African American) 115.7; Est GFR (Non-African American) 99.9; Magnesium 1.6 mg/dl (1.8-2.4); Potassium 3.5 mmol/L (3.5-5.1)
[2020-02-09 06:52] LABS: Albumin Globulin Ratio 0.6 (0.9-2); Bilirubin,Total 0.7 mg/dl (0.2-1); Globulin 3.5 gm/dl (2.5-4.0); Total Protein 5.7 gm/dl (6.4-8.2)
[2020-02-09] MEDS: SODIUM CHLORIDE 0.9% 1000ML 1,000 ML IV SCH (08:40)
[2020-02-09] MEDS: FLUTICASONE/VILANTEROL 200/25MCG 14 PUFFS/INHALER INH SCH (08:41)
[2020-02-09] MEDS: FLUTICASONE PROPIONATE NA SPR 16 GM BTL SCH ×2 (08:42→20:13)
[2020-02-09] MEDS: guaiFENesin 600 MG TABCR PO SCH ×2 (08:42→20:10)
[2020-02-09] MEDS: CETIRIZINE HCL 10 MG TABLET PO SCH (08:42)
[2020-02-09] MEDS: SODIUM CHLORIDE 0.65% NA SOLN 45 ML (OCEAN) SCH ×2 (08:57→20:09)
[2020-02-09] MEDS ORDERED: FLUTICASONE PROPIONATE NA SPR 16 GM BTL SCH (09:00)
[2020-02-09] MEDS ORDERED: ALBUTEROL HFA 8 GM INHALER INH SCH (09:00)
[2020-02-09] MEDS: cefTRIAXone SODIUM 2,000 MG/70 ML BAG IV SCH (12:40)
[2020-02-09 14:26] LABS: Base Excess VBG -2.4 mEq/L; HCO3 VBG 22 mmol/L; PCO2 VBG 34 mmHg (38-50); PO2 VBG 21 mmHg; pH VBG 7.41 (7.36-7.41)
[2020-02-09] MEDS: AZITHROMYCIN 250 MG in DEXTROSE 5% 250 ML IV SCH (14:29)
[2020-02-09 14:30] LABS: Oxygen Saturation VBG < 60.0 %
[2020-02-09 14:44] LABS: BUN Creatinine Ratio 7.3 (10-20); Calcium 8.4 mg/dl (8.5-10.1); Creatinine Clr Calc Pharmacy 65.3 ml/min; Est GFR (African American) 89.4; Est GFR (Non-African American) 77.1; Potassium 3.5 mmol/L (3.5-5.1)
[2020-02-09] MEDS: MAGNESIUM OXIDE 400 MG TAB PO SCH (20:10)
[2020-02-09] MEDS: MONTELUKAST SODIUM 10 MG TABLET PO SCH (20:11)
[2020-02-09] MEDS: ENOXAPARIN INJ 40 MG/0.4 ML SYR SQ SCH (20:11)
--- NOTE | 2020-02-09 22:53 | Hospitalist Progress Note ---
Date of Service February 09, 2020 Assessment & Plan (1) Multifocal pneumonia: - Presented with nasal congestion, post nasal drip, fever/chills, myalgias. - Has been having temps at 38.4 within past 24 hours. -Patient continues to have burst of tachcardia. -Will continue to monitor. - CT chest showed opacities of RUL and RLL; also has opacities of basal left lower lobe, possibly atelectasis. - CT sinuses was negative for acute sinusitis. - Influenza by PCR negative; Biofire +Coronavirus HKU1. COVID-19 test is pending. - Blood cultures pending; U/a pending collection. - Procal is elevated; Ceftriaxone/Azithromycin for coverage of CAP due to appearance of bacterial PNA on CT scan. -will continue with antibiotics at this time, - Duonebs q6hr prn SOB/wheezing. - IV fluids at 80 cc/hr; regular diet as tolerated. (2) Suspected [facility] coronavirus infection: - Possible exposure to COVID-19 -- her son and traveled over the last month to [place] and [place]. - COVID-19 test was sent to the [facility], should be resulted by today, at latest tomorrow (hopefully). - Airborne precautions. (3) Coronavirus infection: HKU1 positive, COVID-19 pending - supportive care, airborne precautions (4) Leukocytosis: - WBC 17.64 in setting of PNA with left shift. - Trend CBC daily. (5) Elevated bilirubin: - T. bili 1.2 in setting of acute illness. - Normalized on the following day. (6) Chronic sinusitis: - H/o partial ethmoidectomy in 2019. - Has not had issues with sinus infections since her surgery, previously had 7-9 per year; treatment for PNA as noted above. - CT of sinuses negative with except of mild to moderate mucosal thickening. (7) Moderate persistent asthma: Advair switched for Breo Ellipta as per hospital formulary (8) Hypokalemia: - improved. (9) Allergic rhinitis: Switch loratadine for cetirizine 10mg PO daily (10) DVT prophylaxis: - SCDs; Lovenox daily. Dispo: Med/surg with tele with airborne precautions. (11) Headache: Patient complaining of a headache. will monitor. Patient does not want any further medications: ok with current pain medicine regimen, Admission and Anticipated Discharge Date Admission Date: February 08, 2020 Subjective Patient reports that she feels about 50 percent better from admission (zero percent), and her baseline (100 percent). Her main complaint today is her headache. She states she normally gets sinus headaches at home, but she feels today it is more from her neck. She blames the position of her bed and is asking if she can have the bed lowered. Review of Systems Review of Systems: All systems reviewed & are unremarkable except as noted in HPI & below Physical Exam Constitutional: WD/WN, vitals as above well developed and well nourished; no acute distress Eyes: PERRL, conjunctivae normal, anicteric sclerae ENMT: no abnromality on external inspection of ears and nose Neck: trachea midline, no thyromegaly Respiratory: normal respiratory effort, lungs clear to auscultation Cardiovascular: RRR, no murmur, no edema Gastrointestinal (Abdomen): normal bowel sounds, soft, nontender, no hepatosplenomegaly Musculoskeletal: no cyanosis or clubbing, extremities motor strength 5/5 Skin: no rashes, warm and dry Neurologic: PERRL, EOMI, accommodation nl, no face palsy, no dysarthria Psychiatric: A+Ox3, euthymic affect Results & Data ([facility]) Vital Signs (Past 12 Hours) Vital Signs Temp Pulse Pulse Resp BP Pulse Ox 02/09/20 21:35 90 02/09/20 21:34 37.9 C H 105 H 85 L 02/09/20 20:07 37.4 C 103 H 20 125/72 91 02/09/20 19:14 92 H 16 94 02/09/20 16:18 37.6 C H 02/09/20 15:37 102 H 02/09/20 14:33 37.8 C H 101 H 20 131/76 94 02/09/20 13:22 87 16 93 02/09/20 12:03 36.8 C 90 18 103/66 94 PG Care Time/CCT Total # of Minutes Spent Total Time Spent with Patient: Total time spent is greater than 50% in coordination of care (as documented) at patient's floor/unit and/or counseling patient: Coding Level of Care Code 03977 Subseq Hosp Care Lvl 3 Diagnoses Multifocal pneumonia J18.9 Suspected [place] coronavirus infection R68.89 Coronavirus infection B34.2 Leukocytosis D72.829 Elevated bilirubin R17 Chronic sinusitis J32.9 Moderate persistent asthma J45.40 Asthma complication type: uncomplicated Hypokalemia E87.6 Allergic rhinitis J30.9 Allergic rhinitis seasonality: unspecified Allergic rhinitis trigger: unspecified DVT prophylaxis Z29.9 Headache R51 Time Spent (min) 35 (1) Moderate persistent asthma Asthma complication type: uncomplicated Qualified Code(s): J45.40 - Moderate persistent asthma, uncomplicated (2) Allergic rhinitis Allergic rhinitis seasonality: unspecified Allergic rhinitis trigger: unspe cified Qualified Code(s): J30.9 - Allergic rhinitis, unspecified
[2020-02-10] MEDS: ALBUTEROL 0.083% NEBU SOLN 3 ML VIAL INH SCH ×2 (01:16→07:17)
[2020-02-10] MEDS: FLUTICASONE PROPIONATE NA SPR 16 GM BTL SCH (08:30)
[2020-02-10] MEDS: FLUTICASONE/VILANTEROL 200/25MCG 14 PUFFS/INHALER INH SCH (08:30)
[2020-02-10] MEDS: ACETAMINOPHEN 325 MG TAB PO PRN (08:30)
[2020-02-10] MEDS: SODIUM CHLORIDE 0.65% NA SOLN 45 ML (OCEAN) SCH (08:31)
[2020-02-10] MEDS: CETIRIZINE HCL 10 MG TABLET PO SCH (08:31)
[2020-02-10] MEDS: MAGNESIUM OXIDE 400 MG TAB PO SCH (08:31)
[2020-02-10] MEDS: guaiFENesin 600 MG TABCR PO SCH (08:31)
[2020-02-10] MEDS ORDERED: ALBUTEROL 0.083% NEBU SOLN 3 ML VIAL INH PRN (09:14)
[2020-02-10 09:58] LABS: Basophils # (auto) 0.02 K/uL (0-0.2); Basophils % (auto) 0.1 %; Eosinophils # (auto) 0.06 K/uL (0-0.5); Eosinophils % (auto) 0.4 %; Hematocrit (blood only) 34.7 % (37-47); Hemoglobin 11.9 g/dL (12.0-16.0); Immature Granulocytes # (auto) 0.19 K/uL (0.00-0.02); Immature Granulocytes % (auto) 1.3 %; Lymphocytes # (auto) 1.47 K/uL (1.2-3.4); Lymphocytes % (auto) 9.8 %; Mean Corpuscular Hemoglobin 32.1 pg (25-34); Mean Corpuscular Hgb Conc 34.3 g/dL (32-36); Mean Corpuscular Volume 93.5 fL (80-100); Mean Platelet Volume 10.2 fL (7.4-10.4); Monocytes # (auto) 1.64 K/uL (0.11-0.59); Monocytes % (auto) 10.9 %; Neutrophils # (auto) 11.67 K/uL (1.4-6.5); Neutrophils % (auto) 77.5 %; Platelet Count 222 K/uL (130-400); RDW Coefficient of Variation 13.4 % (11.5-14.5); Red Blood Count 3.71 M/uL (4.2-5.4); White Blood Count 15.05 K/uL (4.8-10.8)
[2020-02-10 10:32] LABS: Magnesium 1.8 mg/dl (1.8-2.4); Phosphorus 2.7 mg/dl (2.5-4.9)
[2020-02-10 10:33] LABS: BUN Creatinine Ratio 6.6 (10-20); Calcium 8.8 mg/dl (8.5-10.1); Creatinine Clr Calc Pharmacy 85.1 ml/min; Est GFR (African American) 116.9; Est GFR (Non-African American) 100.9; Potassium 3.3 mmol/L (3.5-5.1)
[2020-02-10] MEDS: cefTRIAXone SODIUM 2,000 MG/70 ML BAG IV SCH (13:11)
[2020-02-10] MEDS: AZITHROMYCIN 250 MG in DEXTROSE 5% 250 ML IV SCH (13:42)
--- NOTE | 2020-02-16 22:23 | Discharge Summary ---
Date of Service February 10, 2020 Admission HPI Per Admitting Provider Mrs. Pena is a 54 year old female with past medical history of sinus infections s/p recent partial ethmoidectomy in 2019 who presented with respiratory symptoms. Patient developed frequent sinus infections, average of 7- 9 per year, prior to sinus surgery. She has not had any issues following surgery until she developed sinus pressure/pain on . Pt. c/o thick green-yellow mucous congestion with post nasal drip leading to coughing episodes. She does not have chest congestion, shortness of breath, chest pain. Pt. developed generalized myalgias and severe headache this morning. She has had exposure to family members who recently traveled -- her son traveled to [facility] for spring break (01/22-01/29) via [employer] airport and her traveled to [place] for work (01/16-01/24) via [employer] airport. Her son and are both completely asymptomatic. ER course: Influenza by PCR was negative. Biofire is pending. CT sinuses showed paranasal sinus disease with mild to moderate mucosal thickening. CT chest showed opacities of RUL and RLL concerning for multifocal pneumonia. Pt. will be tested for COVID-19 following discussion with GIANNA. Principal Diagnosis pnemonia Discharge Exam Constitutional: WD/WN, vitals as above well developed and well nourished; no acute distress Eyes: PERRL, conjunctivae normal, anicteric sclerae ENMT: no abnromality on external inspection of ears and nose Neck: trachea midline, no thyromegaly Respiratory: normal respiratory effort, lungs clear to auscultation Cardiovascular: RRR, no murmur, no edema Gastrointestinal (Abdomen): normal bowel sounds, soft, nontender, no hepatosplenomegaly Musculoskeletal: no cyanosis or clubbing, extremities motor strength 5/5 Skin: no rashes, warm and dry Neurologic: PERRL, EOMI, accommodation nl, no face palsy, no dysarthria Psychiatric: A+Ox3, euthymic affect Discharge Data Allergies Allergy/AdvReac Type Severity Reaction Status Date / Time mold Allergy Severe inflamation Unverified 02/08/20 11:01 of lungs and sinus fexofenadine [From Iveth] Allergy Anxiety Verified 02/08/20 11:01 sulfamethoxazole Allergy Headache Verified 02/08/20 11:01 [From Bactrim] trimethoprim [From Bactrim] Allergy Headache Verified 02/08/20 11:01 Consultations 02/08/20 13:33 ED Decision to Admit Stat 02/08/20 14:50 Consult Case Management - Discharge Planning Routine Ordered Studies 02/08/20 11:26 CT sinus wo con Stat 02/08/20 12:10 CT chest wo con Stat Hospital Course (1) Multifocal pneumonia: - Presented with nasal congestion, post nasal drip, fever/chills, myalgias. - Has been having temps at 38.4 within past 24 hours. -Patient continues to have burst of tachcardia. -Will continue to monitor. - CT chest showed opacities of RUL and RLL; also has opacities of basal left lower lobe, possibly atelectasis. - CT sinuses was negative for acute sinusitis. - Influenza by PCR negative; Biofire +Coronavirus HKU1. COVID-19 test is negative.. - Blood cultures pending; U/a pending collection. - Procal is elevated; Ceftriaxone/Azithromycin for coverage of CAP due to appearance of bacterial PNA on CT scan. -will complete course as outpatient. (2) Suspected [facility] coronavirus infection: - Possible exposure to COVID-19 -- her son and traveled over the last month to [place] and [place]. - COVID-19 test was sent to the [facility],negative. (3) Coronavirus infection: HKU1 positive, COVID-19 pending - supportive care, airborne precautions (4) Leukocytosis: - WBC 17.64 in setting of PNA with left shift. - Trend CBC daily. (5) Elevated bilirubin: - T. bili 1.2 in setting of acute illness. - Normalized on the following day. (6) Chronic sinusitis: - H/o partial ethmoidectomy in 2019. - Has not had issues with sinus infections since her surgery, previously had 7-9 per year; treatment for PNA as noted above. - CT of sinuses negative with except of mild to moderate mucosal thickening. (7) Moderate persistent asthma: Advair switched for Breo Ellipta as per hospital formulary (8) Hypokalemia: - improved. (9) Allergic rhinitis: Switch loratadine for cetirizine 10mg PO daily (10) DVT prophylaxis: - SCDs; Lovenox daily. (11) Headache: Patient complaining of a headache. will monitor. Patient does not want any further medications: ok with current pain medicine regimen, Total Time Total Time Spent Total Time Spent (In Minutes): 32 Total Time Includes: Examination of the Patient, Discharge Planning and Medication Reconciliation Discharge Plan Discharge Items Patient Disposition: Home - Self-Care Reason For Visit: RESPIRATORY INFECTION Discharge Diagnosis: coronavirus infection (not COVID-19) Activity: Resume your previous activity Non-emergency contact: Primary Care Provider Call non-emergency contact if: you have any medication questions Follow-up/Referrals: Micky Bauer [Primary Care Provider] - Diet: Regular Addtl Attending Provider Instructions: You have been hospitalized for an acute medical problem. During your stay at [facility], we have made an effort to correct the problem that brought you to the hospital while keeping you as comfortable as possible. Medications were used to bring your condition under control and your discharge instructions will include directions for any medications you should take after leaving the hospital. Please make sure you see your Primary Care Provider as part of your follow up plan. Pending Studies at Discharge: No Stand-Alone Forms: [facility], Smoking Cessation Medications and DC Order Prescriptions: New acetaminophen [Mapap (acetaminophen)] 325 mg Tablet 650 mg PO Q4H PRN (Reason: PAIN) Qty: 30 RF: 0 guaifenesin [Mucinex] 600 mg Tablet Extended Release 12hr 1,200 mg PO Q12 Qty: 30 RF: 0 Continued methenamine hippurate 1 gram Tablet 1 g PO BID RF: 0 fluticasone propion-salmeterol [Advair Diskus] 500-50 mcg/dose Blister With Device 1 inh INHALATION BID RF: 0 mometasone 50 mcg/actuation Irvona,Non-Aerosol 2 spray INTRANASAL BID RF: 0 montelukast [Singulair] 10 mg Tablet 10 mg PO PM RF: 0 albuterol sulfate 90 mcg/actuation Hfa Aerosol Inhaler 1 puff INHALATION QAM RF: 0 loratadine [Claritin] 10 mg Tablet 10 mg PO QPM RF: 0 ibuprofen [Advil] 200 mg Tablet 200 mg PO Q6H PRN (Reason: Pain) RF: 0 Discharge Orders: Discharge Order (Routine); Ordered 02/10/20 Ordered By: Jaziel Don Admission Data Admit Date/Time: 02/08/20 13:11 Attending Provider: Jaziel Don Admit Provider: Kory Valle Primary Care Provider: Micky Bauer Other Providers: Sravani Khan Other Interventions: Discharge Summary Assessment (RN) Last Done: 02/10/20 14:19 DC Date/Time DO NOT enter until pt leaves facility: 02/10/20 16:21 Coding Level of Care Code D/C Day Management >30 mins Diagnoses Multifocal pneumonia J18.9 Suspected [facility] coronavirus infection R68.89 Coronavirus infection B34.2 Leukocytosis D72.829 Elevated bilirubin R17 Chronic sinusitis J32.9 Moderate persistent asthma J45.40 Asthma complication type: uncomplicated Hypokalemia E87.6 Allergic rhinitis J30.9 Allergic rhinitis trigger: unspecified Allergic rhinitis seasonality: unspecified DVT prophylaxis Z29.9 Headache R51 Time Spent (min) 32
== END 2020-02-10 16:21 | disposition home or self-care (01) | DRG 195 ==
LOC: ED 10:12 → 2N 13:11 → SUATTDRO 13:11 → 2N 14:02